=== PATIENT | male | born 1990 | race Caucasian/White ===

== ENCOUNTER → 2021-05-30 | Outpatient (CLI) | payer OTHER ==
--- NOTE | 2021-05-30 16:15 | RAD ---
Site ID: [id number] EXAMINATION: XR RT WRIST 3VIEWS. HISTORY: 30 years Male Reason: RIGHT WRIST PAIN COMPARISON: None. FINDINGS: No fracture, dislocation or radiopaque foreign body. The radiocarpal joint and intercarpal joints appear unremarkable. There is osteophyte formation at the distal radioulnar joint which could relate to sequela of the previous injury subtle calcifications are suggestive in the area of the triangular fibrocartilage. IMPRESSION: Suggestion of subtle calcifications in the area of the triangular fibrocartilage and spur formation a t the ulnar side of the distal radioulnar joint could be sequela of prior injury. No acute process Electronically signed by: Orville Greene MD (05/30/2021 4:13 PM) [id number]
== END ==
LOC: RAD 10:51
PROVIDERS: ATTEND Orthopaedic Surgery
DX: M25.731 Osteophyte, right wrist (principal); M25.531 Pain in right wrist
CPT/HCPCS: 73110